=== PATIENT | female | born 1985 | race Caucasian/White ===

== ENCOUNTER 2018-08-12 19:31 | Observation (INO) | payer SELFPAY ==
[~2018-08-12] VITALS: Ht 175.3 cm; Wt 76.0 kg
[2018-08-12] MEDS ORDERED: SODIUM CHLORIDE FLUSH 10ML SYR IVF ONE (20:00)
[2018-08-12 20:06] LABS: BASOPHILS # (AUTO) 0.03 x10^3/uL (0-0.1); BASOPHILS % (AUTO) 0 % (0-1); EOSINOPHILS # (AUTO) 0.25 x10^3/uL (0-0.4); EOSINOPHILS % (AUTO) 3 % (1-7); LYMPHOCYTES # (AUTO) 3.21 x10^3/uL (1-3.4); LYMPHOCYTES % (AUTO) 43 % (22-44); MD NO; MEAN CORPUSCULAR HEMOGLOBIN 34.1 pg (27.0-34.8); MEAN CORPUSCULAR HGB CONC 34.4 g/dL (32.4-35.8); MEAN CORPUSCULAR VOLUME 99.1 fL (80-100); MEAN PLATELET VOLUME 8.4 fL (7.4-10.4); MONOCYTES # (AUTO) 0.59 x10^3/uL (0.2-0.8); MONOCYTES % (AUTO) 8 % (2-9); NEUTROPHILS # (AUTO) 3.44 x10^3/uL (1.8-6.8); NEUTROPHILS % (AUTO) 46 % (42-75); PLATELET COUNT 251 x10^3/uL (130-400); RED BLOOD COUNT 4.19 x10^6/uL (3.82-5.3); RED CELL DISTRIBUTION WIDTH 12.6 % (9.6-15.2)
[2018-08-12 20:11] LABS: ALBUMIN 3.7 g/dL (3.4-5.0); ANION GAP 5 mmol/L (5-15); CALCIUM 7.9 mg/dL (8.5-10.1); CHLORIDE 116 mmol/L (98-107); CREATININE 0.55 mg/dL (0.55-1.02)
[2018-08-12] MEDS ORDERED: MECLIZINE CHEWABLE 25 MG TAB PO ONE (21:00)
[2018-08-12] MEDS ORDERED: DIAZEPAM 5 MG/ML, 2ML IVPush ONE (21:00)
[2018-08-12] MEDS ORDERED: HYDROcodone/APAP 5/325 TABLET PO ONE (21:00)
[2018-08-12] MEDS ORDERED: HYDROcodone/APAP 5/325 TABLET ONE (21:01)
[2018-08-12] MEDS ORDERED: ONDANSETRON 2MG/ML, 2ML ONE (21:07)
[2018-08-12] MEDS ORDERED: ONDANSETRON 2MG/ML, 2ML IVPush ONE (21:30)
[2018-08-12] MEDS ORDERED: ASPIRIN 325 MG TABLET PO ONE (21:51)
[2018-08-12] MEDS ORDERED: ASPIRIN 325 MG TABLET ONE (22:12)
[2018-08-12] MEDS ORDERED: OMNIPAQUE 350 MG/ML, 100ML BOTTLE ONE (22:24)
[2018-08-12] MEDS: ENOXAPARIN 40 MG/0.4 ML SQ SCH (23:45)
[2018-08-13] MEDS: KETOROLAC 30 MG/1 ML IVPush PRN ×3 (00:39→12:39)
[2018-08-13 05:02] VITALS: BP 110/68
[2018-08-13 05:47] LABS: BASOPHILS # (AUTO) 0.03 x10^3/uL (0-0.1); BASOPHILS % (AUTO) 1 % (0-1); EOSINOPHILS # (AUTO) 0.28 x10^3/uL (0-0.4); EOSINOPHILS % (AUTO) 6 % (1-7); LYMPHOCYTES # (AUTO) 2.21 x10^3/uL (1-3.4); LYMPHOCYTES % (AUTO) 44 % (22-44); MD NO; MEAN CORPUSCULAR HEMOGLOBIN 33.4 pg (27.0-34.8); MEAN CORPUSCULAR HGB CONC 33.6 g/dL (32.4-35.8); MEAN CORPUSCULAR VOLUME 99.2 fL (80-100); MEAN PLATELET VOLUME 8.6 fL (7.4-10.4); MONOCYTES # (AUTO) 0.54 x10^3/uL (0.2-0.8); MONOCYTES % (AUTO) 11 % (2-9); NEUTROPHILS # (AUTO) 1.95 x10^3/uL (1.8-6.8); NEUTROPHILS % (AUTO) 39 % (42-75); PLATELET COUNT 223 x10^3/uL (130-400); RED BLOOD COUNT 4.06 x10^6/uL (3.82-5.3); RED CELL DISTRIBUTION WIDTH 12.4 % (9.6-15.2)
[2018-08-13 05:52] LABS: ANION GAP 7 mmol/L (5-15); CALCIUM 8.2 mg/dL (8.5-10.1); CHLORIDE 114 mmol/L (98-107)
[2018-08-13 07:47] VITALS: BP 111/70
[2018-08-13] MEDS ORDERED: GADOBUTROL 7.5 MMOL/7.5 ML PFS ONE (09:31)
[2018-08-13] MEDS ORDERED: PSEUDOEPHEDRINE 30 MG TABLET PO PRN (14:00)
[2018-08-13] MEDS ORDERED: SODIUM CHLORIDE NASAL SPRAY 45ML BOTTLE NAS PRN (14:00)
[2018-08-13 14:56] VITALS: BP 113/72
[2018-08-13] MEDS: LORATADINE 10 MG TABLET PO SCH (14:59)
[2018-08-13] MEDS ORDERED: NICOTINE 7 MG/24 HR PATCH.TD24 TD SCH (18:30)
[2018-08-13 21:13] VITALS: BP 103/68
[2018-08-13] MEDS: ENOXAPARIN 40 MG/0.4 ML SQ SCH (22:19)
[2018-08-14 05:17] VITALS: BP 106/72
[2018-08-14 07:50] VITALS: BP 109/68
[2018-08-14] MEDS: LORATADINE 10 MG TABLET PO SCH (09:41)
[2018-08-14] MEDS ORDERED: SODI44SP NAS (11:57)
[2018-08-14] MEDS ORDERED: LORA-247 PO (11:57)
[2018-08-14] MEDS ORDERED: PSEU30TA24 PO (11:57)
== END 2018-08-14 16:22 | disposition home or self-care (01) ==
LOC: ED 21:40 → INTOOBSV 21:45 → EDIP 21:45 → 5SO 23:17
PROVIDERS: ADMIT Family Medicine; ATTEND Family Medicine
DX: R55 Syncope and collapse (principal); E87.6 Hypokalemia; F17.200 Nicotine dependence, unspecified, uncomplicated; G95.9 Disease of spinal cord, unspecified; H93.11 Tinnitus, right ear; Z90.710 Acquired absence of both cervix and uterus; J30.9 Allergic rhinitis, unspecified
CPT/HCPCS: 36415; 70450; 70498; 70553; 72141; 80048; 82040; 82607; 85025; 90471; 90656; 93005; 96372; 96374; 96375; 96376; 99284; A9585; G0378; J1650; J1885; J2405; J3360; Q9967

== ENCOUNTER 2018-11-12 13:45 | Emergency (ER) | payer BC, OTHER ==
[~2018-11-12] VITALS: Ht 175.3 cm; Wt 79.0 kg
[~2018-11-12 13:45] MED LIST: LORA-247 PO; PSEU30TA24 PO; SODI44SP NAS
[2018-11-12] MEDS ORDERED: ACETAMINOPHEN 500 MG TABLET ONE (13:59)
[2018-11-12] MEDS ORDERED: ACETAMINOPHEN 500 MG TABLET PO ONE (14:00)
[2018-11-12] MEDS ORDERED: MORPHINE SULFATE 4 MG/ML, 1ML ONE ×2 (14:18→15:43)
[2018-11-12] MEDS ORDERED: ONDANSETRON 2MG/ML, 2ML ONE (14:18)
[2018-11-12] MEDS ORDERED: PLEASE ENTER WEIGHT MC SCH (14:30)
[2018-11-12] MEDS ORDERED: morphine SULFATE 10 MG/ML, 1ML IVPush ONE (14:30)
[2018-11-12] MEDS ORDERED: ONDANSETRON 2MG/ML, 2ML IVPush ONE (14:30)
[2018-11-12] MEDS ORDERED: SODIUM CHLORIDE 0.9% 1,000ML IVBOLUS ONE (14:30)
[2018-11-12 14:38] LABS: BASOPHILS # (AUTO) 0.01 x10^3/uL (0-0.1); BASOPHILS % (AUTO) 0 % (0-1); EOSINOPHILS # (AUTO) 0.02 x10^3/uL (0-0.4); EOSINOPHILS % (AUTO) 0 % (1-7); LYMPHOCYTES # (AUTO) 0.89 x10^3/uL (1-3.4); LYMPHOCYTES % (AUTO) 10 % (22-44); MD NO; MEAN CORPUSCULAR HEMOGLOBIN 33.5 pg (27.0-34.8); MEAN CORPUSCULAR HGB CONC 33.6 g/dL (32.4-35.8); MEAN CORPUSCULAR VOLUME 99.8 fL (80-100); MEAN PLATELET VOLUME 8.2 fL (7.4-10.4); MONOCYTES # (AUTO) 1.08 x10^3/uL (0.2-0.8); MONOCYTES % (AUTO) 12 % (2-9); NEUTROPHILS # (AUTO) 7.13 x10^3/uL (1.8-6.8); NEUTROPHILS % (AUTO) 78 % (42-75); PLATELET COUNT 180 x10^3/uL (130-400); RED BLOOD COUNT 4.31 x10^6/uL (3.82-5.3); RED CELL DISTRIBUTION WIDTH 12.4 % (9.6-15.2)
[2018-11-12 14:40] LABS: MICROSCOPIC NOT IND
--- NOTE | 2018-11-12 14:40 | NUR ---
Late note: pt reports leg pains/aches, bilateral arm pit pain after seen yesterday and given abx. Denies any new abd pain. Pt arrives with fever 103, tylenol given in triage. Fluids infusing, per PA hold on abx until labs resulted. Pt medicated per emar, reports tolerable level of pain after meds. On cont cardiac and pulse ox monitoring.
[2018-11-12 14:42] LABS: ALANINE AMINOTRANSFERASE 19 U/L (12-78); ALBUMIN 3.8 g/dL (3.4-5.0); ANION GAP 7 mmol/L (5-15); CALCIUM 8.6 mg/dL (8.5-10.1); CHLORIDE 107 mmol/L (98-107); CREATININE 0.74 mg/dL (0.55-1.02)
[2018-11-12 14:44] LABS: ALKALINE PHOSPHATASE 60 U/L (45-117); BILIRUBIN,TOTAL 0.7 mg/dL (0.2-1.0); TOTAL PROTEIN 7.2 g/dL (6.4-8.2)
[2018-11-12 14:45] LABS: CULTURE INDICATED? NO
--- NOTE | 2018-11-12 15:29 | NUR ---
REPORT FROM BETO PAIGE.
--- NOTE | 2018-11-12 15:31 | NUR ---
FIRST CONTACT WITH PT. PT SITTING UP IN GURNEY, AWAKE/ALERT. PT APPEARS UNCOMFORTABLE, REPORTING "REALLY BAD" KNEE PAIN. "IT FEELS LIKE I FELL ON THEM". NO OPEN WOUNDS NOTED/NO SWELLING/REDNESS. +TENDER TO PALPATION. PT REQUESTING ADDITIONAL PAIN MEDICATIONS. ERP AWARE. AWAITING ORDERS.
[2018-11-12] MEDS ORDERED: KETOROLAC 30 MG/1 ML ONE (15:42)
[2018-11-12] MEDS ORDERED: DEXAMETHASONE 4 MG/ML, 1ML ONE (15:42)
--- NOTE | 2018-11-12 15:57 | NUR ---
PT MEDICATED PER EMAR FOR CONTINUED PAIN. POC IS DC WHEN ABLE
[2018-11-12] MEDS ORDERED: MORPHINE SULFATE 4 MG/ML, 1ML IVPush ONE (16:00)
[2018-11-12] MEDS ORDERED: DEXAMETHASONE 4 MG/ML, 1ML IVPush ONE (16:00)
[2018-11-12] MEDS ORDERED: KETOROLAC 30 MG/1 ML IVPush ONE (16:00)
--- NOTE | 2018-11-12 16:27 | NUR ---
DESPITE MILD HYPOTENSION, PT AMBULATORY W/O CO DIZZINESS/WEAKNESS/NAUSEA. PT AMBULATORY WO ASSISTANCE. SPO2 >90% ON RA. RR WNL PT REPORTS SIGNIFICANT IMPROVEMENT IN PAIN, 3/10 "WAY MORE COMFORTABLE". IV DC'D. PT OFF MONITORING AND UP TO DRESS SELF. SO AT BEDSIDE FOR ASSISTANCE.
[2018-11-12 16:28] VITALS: BP 95/50
--- NOTE | 2018-11-12 16:39 | NUR ---
TASK RN: Patient/Caregiver given discharge instructions and they have confirmed that they understand the instructions. Patient ambulatory with steady gait.
== END 2018-11-12 16:40 | disposition home or self-care (01) ==
LOC: ED 15:30
DX: M79.10 Myalgia, unspecified site (principal); R50.9 Fever, unspecified; Z77.22 Contact with and (suspected) exposure to environmental tobacco smoke (acute) (chronic)
CPT/HCPCS: 36415; 80053; 81003; 83605; 84145; 85025; 87040; 93005; 96374; 96375; 96376; 99284; J1100; J1885; J2270; J2405; J7030

== ENCOUNTER 2018-11-30 10:45 | Emergency (ER) | payer BC ==
[~2018-11-30] VITALS: Ht 175.3 cm; Wt 74.1 kg
[2018-11-30] MEDS ORDERED: HYDROmorphone 2 MG/ML, 1ML ONE (11:26)
[2018-11-30] MEDS ORDERED: KETOROLAC 60 MG/2 ML ONE (11:26)
[2018-11-30] MEDS ORDERED: KETOROLAC 30 MG/1 ML IM ONE (11:30)
[2018-11-30] MEDS ORDERED: HYDROmorphone 1 MG/ML, 1ML INJ IM ONE (11:30)
[2018-11-30 11:33] LABS: BASOPHILS # (AUTO) 0.04 x10^3/uL (0-0.1); BASOPHILS % (AUTO) 1 % (0-1); EOSINOPHILS # (AUTO) 0.21 x10^3/uL (0-0.4); EOSINOPHILS % (AUTO) 4 % (1-7); LYMPHOCYTES # (AUTO) 1.41 x10^3/uL (1-3.4); LYMPHOCYTES % (AUTO) 26 % (22-44); MD NO; MEAN CORPUSCULAR HEMOGLOBIN 34.1 pg (27.0-34.8); MEAN CORPUSCULAR HGB CONC 33.6 g/dL (32.4-35.8); MEAN CORPUSCULAR VOLUME 101.3 fL (80-100); MEAN PLATELET VOLUME 8.1 fL (7.4-10.4); MONOCYTES # (AUTO) 0.63 x10^3/uL (0.2-0.8); MONOCYTES % (AUTO) 12 % (2-9); NEUTROPHILS # (AUTO) 3.15 x10^3/uL (1.8-6.8); NEUTROPHILS % (AUTO) 58 % (42-75); PLATELET COUNT 277 x10^3/uL (130-400); RED BLOOD COUNT 4.48 x10^6/uL (3.82-5.3); RED CELL DISTRIBUTION WIDTH 12.7 % (9.6-15.2)
[2018-11-30 11:46] LABS: ALANINE AMINOTRANSFERASE 29 U/L (12-78); ANION GAP 6 mmol/L (5-15); CALCIUM 9.1 mg/dL (8.5-10.1); CHLORIDE 107 mmol/L (98-107); CREATININE 0.86 mg/dL (0.55-1.02)
[2018-11-30 11:49] LABS: ALKALINE PHOSPHATASE 63 U/L (45-117); BILIRUBIN,TOTAL 0.4 mg/dL (0.2-1.0); TOTAL PROTEIN 7.6 g/dL (6.4-8.2)
[2018-11-30 12:52] VITALS: BP 117/66
== END 2018-11-30 13:51 | disposition home or self-care (01) ==
LOC: ED 12:01
DX: L04.2 Acute lymphadenitis of upper limb (principal); F17.200 Nicotine dependence, unspecified, uncomplicated
CPT/HCPCS: 36415; 71046; 80053; 85025; 93005; 93971; 96372; 99284; J1170; J1885

== ENCOUNTER 2018-12-10 17:02 | Emergency (ER) | payer BC ==
[~2018-12-10] VITALS: Ht 175.3 cm; Wt 77.0 kg
[2018-12-10] MEDS ORDERED: IBUPROFEN 600 MG TABLET ONE (18:29)
[2018-12-10] MEDS ORDERED: ACETAMINOPHEN 500 MG TABLET ONE (18:29)
[2018-12-10] MEDS ORDERED: IBUPROFEN 600 MG TABLET PO ONE (18:30)
[2018-12-10] MEDS ORDERED: ACETAMINOPHEN 500 MG TABLET PO ONE (18:30)
--- NOTE | 2018-12-10 18:35 | NUR ---
PT MEDICATED PER MAR, PT REMAINS TEARFUL, STATING PAIN 10/10, AT BEDSIDE, WILL REASSESS AND NOTIFY MD.
[2018-12-10 18:37] LABS: BASOPHILS # (AUTO) 0.04 x10^3/uL (0-0.1); BASOPHILS % (AUTO) 1 % (0-1); EOSINOPHILS # (AUTO) 0.15 x10^3/uL (0-0.4); EOSINOPHILS % (AUTO) 3 % (1-7); LYMPHOCYTES % (AUTO) 37 % (22-44); MD NO; MEAN CORPUSCULAR HEMOGLOBIN 33.9 pg (27.0-34.8); MEAN CORPUSCULAR HGB CONC 33.8 g/dL (32.4-35.8); MEAN CORPUSCULAR VOLUME 100.5 fL (80-100); MEAN PLATELET VOLUME 8.3 fL (7.4-10.4); MONOCYTES # (AUTO) 0.53 x10^3/uL (0.2-0.8); MONOCYTES % (AUTO) 10 % (2-9); NEUTROPHILS # (AUTO) 2.67 x10^3/uL (1.8-6.8); NEUTROPHILS % (AUTO) 50 % (42-75); PLATELET COUNT 279 x10^3/uL (130-400); RED BLOOD COUNT 4.19 x10^6/uL (3.82-5.3); RED CELL DISTRIBUTION WIDTH 12.8 % (9.6-15.2)
[2018-12-10 18:43] LABS: ALBUMIN 3.7 g/dL (3.4-5.0); ANION GAP 8 mmol/L (5-15); CALCIUM 8.2 mg/dL (8.5-10.1); CHLORIDE 114 mmol/L (98-107); CREATININE 0.58 mg/dL (0.55-1.02)
[2018-12-10 18:45] LABS: CREATINE KINASE, TOTAL 47 U/L (26-192)
--- NOTE | 2018-12-10 19:08 | NUR ---
RECEIVED BS REPORT FROM BETO OSORIO AND BETO GOTTI TO ASSUME CARE OF PT. IMMEDIATELY UPON ENTERING ROOM PT. FAMILY MEMBER BECAME VERY VERBALLY AGRESSIVE WITH THESE 3 RN'S SHOUTING ABOUT HOW HE DID NOT APPRECIATE THE DR. BEDSIDE MANNER. PT. 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
--- NOTE | 2018-12-10 19:10 | NUR ---
REPORT GIVEN TO BOBBY PÉREZ. ANGRY WITH ERMD, CUSSING AND SWEARING TO NOC/DAY SHIFT STAFF DURING SHIFT CHANGE, HE STATES " THE ASSHOLE COULDNT GIVE TWO SECONDS TO APPOLOGIZE FOR HIS BEHAVIOR TO MY "
--- NOTE | 2018-12-10 19:11 | NUR ---
DR. BOWLING AT BS NOW. PT. FAMILY WAS ALSO STATING "I AM NOT NAIVE TO WHAT GOES ON, THAT ISN'T BUSY, EVERYONE IS JUST SITTING ON THEIR ASS."
[2018-12-10] MEDS ORDERED: OXYcodone IR 5MG TABLET PO ONE (19:30)
--- NOTE | 2018-12-10 19:37 | NUR ---
PT. MEDICATED PER RODGER ROA AT BS.
--- NOTE | 2018-12-10 20:22 | NUR ---
CHART UP FOR RECHECK BY JEFE.
--- NOTE | 2018-12-10 20:36 | NUR ---
PT. RESTING ON GURNEY MOSTLY SLEEPING. NO DISTRESS NOTED. RESPIRATIONS EVEN, NON-LABORED. FAMILY APOLOGETIC TO THIS RN AT THIS TIME.
--- NOTE | 2018-12-10 20:40 | NUR ---
DR. BOWLING IN TO DISCUSS FINDINGS AND POC WITH PT. AND FAMILY.
[2018-12-10 20:56] VITALS: BP 90/49
== END 2018-12-10 21:07 | disposition home or self-care (01) ==
LOC: ED 20:27
DX: M79.661 Pain in right lower leg (principal); M79.662 Pain in left lower leg; M79.10 Myalgia, unspecified site; R53.83 Other fatigue; Z90.710 Acquired absence of both cervix and uterus
CPT/HCPCS: 36415; 80048; 82040; 82550; 83735; 85025; 93970; 99284

== ENCOUNTER 2019-07-15 21:16 | Emergency (ER) | payer BC ==
[~2019-07-15] VITALS: Ht 175.3 cm; Wt 87.0 kg
--- NOTE | 2019-07-15 22:03 | NUR ---
ASSESSMENT MADE. PA AT BEDSIDE.
[2019-07-15] MEDS ORDERED: SODIUM CHLORIDE 0.9% 1,000ML IVBOLUS ONE (22:30)
[2019-07-15] MEDS ORDERED: KETOROLAC 30 MG/1 ML IVPush ONE (22:30)
[2019-07-15] MEDS ORDERED: DIPHENHYDRAMINE 50 MG/ML, 1ML IVPush ONE (22:30)
[2019-07-15] MEDS ORDERED: METOCLOPRAMIDE 5 MG/ML, 2ML IVPush ONE (22:30)
[2019-07-15] MEDS ORDERED: SODIUM CHLORIDE FLUSH 10ML SYR IVF ONE (22:30)
[2019-07-15] MEDS ORDERED: METOCLOPRAMIDE 5 MG/ML, 2ML ONE (22:35)
[2019-07-15] MEDS ORDERED: DIPHENHYDRAMINE 50 MG/ML, 1ML ONE (22:35)
[2019-07-15] MEDS ORDERED: KETOROLAC 30 MG/1 ML ONE (22:35)
--- NOTE | 2019-07-15 22:50 | NUR ---
EKG and X ray done. IVF hung.
--- NOTE | 2019-07-15 23:00 | NUR ---
patient medicated. c/o chest wall pain due to chest compression. PA aware.
[2019-07-15 23:04] LABS: BASOPHILS # (AUTO) 0.03 x10^3/uL (0-0.1); BASOPHILS % (AUTO) 0 % (0-1); EOSINOPHILS # (AUTO) 0.54 x10^3/uL (0-0.4); EOSINOPHILS % (AUTO) 7 % (1-7); LYMPHOCYTES # (AUTO) 2.92 x10^3/uL (1-3.4); LYMPHOCYTES % (AUTO) 39 % (22-44); MD NO; MEAN CORPUSCULAR HEMOGLOBIN 33.3 pg (27.0-34.8); MEAN CORPUSCULAR HGB CONC 33.7 g/dL (32.4-35.8); MEAN CORPUSCULAR VOLUME 98.9 fL (80-100); MEAN PLATELET VOLUME 8.6 fL (7.4-10.4); MONOCYTES % (AUTO) 8 % (2-9); NEUTROPHILS # (AUTO) 3.37 x10^3/uL (1.8-6.8); NEUTROPHILS % (AUTO) 45 % (42-75); PLATELET COUNT 270 x10^3/uL (130-400); RED BLOOD COUNT 4.45 x10^6/uL (3.82-5.3); RED CELL DISTRIBUTION WIDTH 13.5 % (9.6-15.2)
[2019-07-15 23:14] LABS: ALANINE AMINOTRANSFERASE 52 U/L (12-78); ALBUMIN 3.8 g/dL (3.4-5.0); ANION GAP 6 mmol/L (5-15); CALCIUM 9.3 mg/dL (8.5-10.1); CHLORIDE 114 mmol/L (98-107); CREATININE 0.64 mg/dL (0.55-1.02)
[2019-07-15 23:18] LABS: ALKALINE PHOSPHATASE 57 U/L (45-117); BILIRUBIN,TOTAL 0.2 mg/dL (0.2-1.0); TOTAL PROTEIN 7.4 g/dL (6.4-8.2)
--- NOTE | 2019-07-15 23:30 | NUR ---
patient sleeping, no complaints.
--- NOTE | 2019-07-15 23:50 | NUR ---
attempted to ambulate, unable still dizzy.
--- NOTE | 2019-07-16 00:30 | NUR ---
attempted to ambulate states still dizzy and feeling weak.
[2019-07-16] MEDS ORDERED: SODIUM CHLORIDE 0.9% 1,000ML IVBOLUS ONE ×2 (01:00→03:00)
--- NOTE | 2019-07-16 01:00 | NUR ---
ERP at bedside for re-evaluation. 2nd liter IVF hung
--- NOTE | 2019-07-16 02:00 | NUR ---
IVF infused. patient's BP low. MD aware. orthostatic BP ordered.
--- NOTE | 2019-07-16 02:21 | NUR ---
RN received report from BETO Waggoner. Updated on patients current complaint and interventions performed. Also reviewed plan of care. Assumed patient care.
--- NOTE | 2019-07-16 02:30 | NUR ---
Positive Orthostatic BP. aware.
[2019-07-16] MEDS ORDERED: SODIUM CHLORIDE 0.9% 1,000 ML IV SCH (04:11)
[2019-07-16] MEDS ORDERED: ONDANSETRON ODT 4 MG PO PRN (04:30)
[2019-07-16] MEDS ORDERED: PROMETHAZINE 25 MG/ML, 1ML IM PRN (04:30)
[2019-07-16] MEDS ORDERED: BISACODYL 10 MG SUPP PR PRN (04:30)
[2019-07-16] MEDS ORDERED: hydrALAzine 20 MG/ML, 1ML IVPush PRN (04:30)
[2019-07-16] MEDS ORDERED: NICOTINE 7 MG/24 HR PATCH.TD24 TD SCH (04:30)
[2019-07-16] MEDS ORDERED: ONDANSETRON 2MG/ML, 2ML IVPush PRN (04:30)
[2019-07-16] MEDS ORDERED: DOCUSATE 100 MG CAPSULE PO PRN (04:30)
[2019-07-16] MEDS ORDERED: POLYETHYLENE GLYCOL 17 GM PACKET PO PRN (04:30)
[2019-07-16] MEDS ORDERED: ACETAMINOPHEN 325 MG TABLET PO PRN (04:30)
[2019-07-16] MEDS ORDERED: HEPARIN 5,000 UNITS/ML, 1ML SQ SCH (04:30)
[2019-07-16 04:54] LABS: FREE T4 (FREE THYROXINE) 0.76 ng/dL (0.76-1.46)
[2019-07-16] MEDS ORDERED: ONDANSETRON ODT 4 MG ONE (04:59)
[2019-07-16] MEDS ORDERED: NICOTINE 7 MG/24 HR PATCH.TD24 ONE (04:59)
--- NOTE | 2019-07-16 05:41 | NUR ---
RN to bedside after assessment by hospital provider. RN noted medications were ordered immediately. Spoke with pharmacy to reschedule medications to normal twice daily times at 0900. Patient requested having a bathroom visit. RN returned assisted patient to commode due to history of loss of consciousness with standing. RN then returned, administered analgesic and antiemetic medications after patient had an episode of emesis. Patient agreeable. RN then returned after bed meeting as patient remains a telemetry hold. RN then returned to bedside, patient transferred into hospital bed. Patient then provided with warm blankets. Awaiting hospital bed.
--- NOTE | 2019-07-16 07:03 | NUR ---
REC BS REPORT PT RESTING NADN
--- NOTE | 2019-07-16 07:34 | NUR ---
O2 2 LPM NC STARTED DESAT TO 88 WHILE ASLEEP
[2019-07-16] MEDS ORDERED: AMOXICILLIN/CLAV 875-125MG TABLET ONE ×2 (08:52→11:46)
[2019-07-16] MEDS ORDERED: HEPARIN 5,000 UNITS/ML, 1ML ONE (08:52)
[2019-07-16] MEDS ORDERED: AMOXICILLIN/CLAV 875-125MG TABLET PO SCH ×2 (09:00→11:00)
[2019-07-16] MEDS ORDERED: GABA300C10 PO (09:32)
[2019-07-16] MEDS ORDERED: PRAZ2CAP2 PO (09:32)
[2019-07-16] MEDS ORDERED: QUET200T4 PO (09:32)
[2019-07-16] MEDS ORDERED: BUSP5TAB2 PO (09:32)
[2019-07-16] MEDS ORDERED: FLUO20CA19 PO (09:32)
--- NOTE | 2019-07-16 09:54 | NUR ---
Sathya garcia in ED - 07/16/19 at 1001 by DERRICK MED RECC UPDATED-SPOKE TO DR. MCLEOD-ADJUSTED HOME MEDS VSS ON SUPERVISOR POST WAVE UA COLLECTED
--- NOTE | 2019-07-16 09:59 | NUR ---
PRIOR NOTE NOT WRITTEN BY BELINDA PÉREZ RATHER WRITTEN BY KULWINDER PÉREZ MED RECC UPDATED-SPOKE TO DR. MCLEOD-ADJUSTED HOME MEDS VSS ON CUTTER BANANA ROOM UA COLLECTED
[2019-07-16] MEDS ORDERED: MAGNESIUM SULFATE PMX 2GM/50ML 50 ML IV ONE (10:00)
[2019-07-16 10:06] LABS: MICROSCOPIC NOT IND
[2019-07-16 10:09] LABS: CULTURE INDICATED? NO
--- NOTE | 2019-07-16 10:34 | NUR ---
CLARIFIED ESTIMATED TIME WITH FURTHER ASSESSMENT PATIENT REPORT'S "WHEN I HAD MY EAR INFECTION LAST YEAR I WAS PASSING OUT JUST LIKE THIS. I THINK IT IS RELATED."
--- NOTE | 2019-07-16 10:45 | NUR ---
Break RN: MD Bo paged to request scheduled home meds be ordered now that med req complete, and to equest re-assessment for discharge per pt request. MD Vizcarra states that he wants the pt's ECHO completed he will assess pt for discharge. Report to primary RN Jayce
--- NOTE | 2019-07-16 11:05 | NUR ---
echo at bedside
[2019-07-16] MEDS ORDERED: BUSPIRONE 10 MG TABLET PO SCH (11:30)
[2019-07-16] MEDS ORDERED: GABAPENTIN 300 MG CAPSULE PO SCH ×2 (11:30→12:00)
[2019-07-16] MEDS ORDERED: FLUOXETINE 10 MG CAP PO SCH (11:30)
[2019-07-16] MEDS ORDERED: GABAPENTIN 300 MG CAPSULE ONE (11:47)
[2019-07-16] MEDS ORDERED: FLUOXETINE 10 MG CAP ONE (11:47)
[2019-07-16] MEDS ORDERED: FLUOXETINE HCL 20 MG CAPSULE ONE (11:47)
[2019-07-16] MEDS ORDERED: CLINDAMYCIN 300 MG CAPSULE ONE (11:59)
[2019-07-16] MEDS ORDERED: CLINDAMYCIN 300 MG CAPSULE PO SCH (12:00)
[2019-07-16] MEDS ORDERED: FLUOXETINE HCL 20 MG CAPSULE PO SCH (12:00)
[2019-07-16] MEDS ORDERED: BUSPIRONE 5 MG TABLET PO SCH (12:00)
--- NOTE | 2019-07-16 13:40 | NUR ---
US RESULTS REVIEWED- DR. DELGADO PAGED
--- NOTE | 2019-07-16 13:51 | NUR ---
NO MD CALL BACK THUS FAR. DR. DELGADO PAGED AGAIN AT [phone]
--- NOTE | 2019-07-16 13:53 | NUR ---
SPOKE TO DR. DELGADO. HE IS TO REVIEW RESULTS AND WILL EVALUATE DISPO/COME SEE PATIENT WITHIN THE HOUR (BY 3:00PM)
[2019-07-16] MEDS ORDERED: ACET325T26 PO (14:25)
[2019-07-16] MEDS ORDERED: CLIN300C8 PO (14:25)
--- NOTE | 2019-07-16 15:10 | NUR ---
REPORT TO CHAPARRO PÉREZ
--- NOTE | 2019-07-16 15:28 | NUR ---
Report received from Jayce. pt resting and in no distress.
--- NOTE | 2019-07-16 15:31 | NUR ---
[facility]. [facility]charge [facility] to start discharge paperwork.
[2019-07-16 15:35] VITALS: BP 112/67
--- NOTE | 2019-07-16 15:35 | NUR ---
pt refused flu vaccine. states will get at [employer], where she works.
[2019-07-16] MEDS ORDERED: QUETIAPINE 200 MG TABLET PO SCH (21:00)
[2019-07-16] MEDS ORDERED: PRAZOSIN 2 MG CAPSULE PO SCH (21:00)
== END 2019-07-16 16:52 | disposition other institution (70) ==
LOC: ED 07-16 02:44 → INTOOBSV 07-16 03:00 → UNDOADMOB 07-16 03:00 → EDIP 07-16 03:00 → ED 07-16 16:52
DX: R55 Syncope and collapse (principal); R07.89 Other chest pain; I95.9 Hypotension, unspecified
CPT/HCPCS: 36415; 71045; 80053; 81003; 83036; 83735; 84439; 84443; 84703; 85025; 93005; 93306; 96361; 96374; 96375; 99285; J1200; J1885; J2765; J7030; Q0162

== ENCOUNTER 2020-02-14 16:03 | Emergency (ER) | payer BC, OTHER ==
[~2020-02-14] VITALS: Ht 175.3 cm; Wt 93.2 kg
[~2020-02-14 16:03] MED LIST changes: +ACET325T26 PO; +BUSP5TAB2 PO; +CLIN300C8 PO; +FLUO20CA19 PO; +GABA300C10 PO; +PRAZ2CAP2 PO; +QUET200T4 PO
--- NOTE | 2020-02-14 16:33 | NUR ---
PT TO ROOM FROM LOBBY
--- NOTE | 2020-02-14 16:34 | NUR ---
34 YR OLD FEMALE HERE WITH C/O "I KICKED THE CORNER OF MY BED. MY TOE ISNT RIGHT" LEFT LITTLE TOE ANGLED TO SIDE. PT HERE WITH NEIGHBOR DAMEON.
[2020-02-14] MEDS ORDERED: LIDOCAINE-MPF 1%, 5ML INFIL ONE (17:00)
[2020-02-14] MEDS ORDERED: LIDOCAINE-MPF 1%, 5ML ONE (17:41)
[2020-02-14] MEDS ORDERED: ACETAMINOPHEN 325 MG TABLET ONE (17:42)
--- NOTE | 2020-02-14 17:47 | NUR ---
SHANNON SANTIAGO AT BEDSIDE TO EVAL PT. PT MEDICATED ORDERED. LIDOCAINE ADMINISTERED BY SHANNON. PT AND PTS FRIEND AWARE OF POC.
[2020-02-14] MEDS ORDERED: ACETAMINOPHEN 325 MG TABLET PO ONE (18:00)
[2020-02-14] MEDS ORDERED: HYDROmorphone 1 MG/ML, 1ML INJ IM ONE (18:30)
[2020-02-14] MEDS ORDERED: HYDROmorphone 1 MG/ML, 1ML INJ ONE (18:34)
--- NOTE | 2020-02-14 18:42 | NUR ---
PT MEDICATED FOR 11/12 PAIN ORDERED.
[2020-02-14 18:43] VITALS: BP 121/64
--- NOTE | 2020-02-14 18:50 | NUR ---
REPORT TO JOEY PÉREZ
== END 2020-02-14 19:13 | disposition home or self-care (01) ==
LOC: ED 17:59
DX: S93.114A Dislocation of interphalangeal joint of right lesser toe(s), initial encounter (principal); F17.200 Nicotine dependence, unspecified, uncomplicated; I95.9 Hypotension, unspecified; E87.6 Hypokalemia; X58.XXXA Exposure to other specified factors, initial encounter; Y93.89 Activity, other specified; Y92.098 Other place in other non-institutional residence as the place of occurrence of the external cause; Y99.8 Other external cause status
CPT/HCPCS: 28515; 73630; 96372; 99284; J1170; 28660

== ENCOUNTER 2020-10-11 14:57 | Emergency (ER) | payer BC ==
[~2020-10-11] VITALS: Ht 175.3 cm; Wt 94.0 kg
[~2020-10-11 14:57] MED LIST changes: -CLIN300C8 PO; +CLIN300C9 PO; +PSEU30TA PO; -PSEU30TA24 PO
[2020-10-11 15:00] VITALS: BP 169/88
--- NOTE | 2020-10-11 15:40 | NUR ---
plane runner: pt from lobby to room 6
--- NOTE | 2020-10-11 16:14 | NUR ---
RAD IN ROOM.
--- NOTE | 2020-10-11 16:55 | NUR ---
Patient given discharge instructions and they have confirmed that they understand the instructions. Patient ambulatory with steady gait.
== END 2020-10-11 16:57 | disposition home or self-care (01) ==
LOC: ED 16:51
DX: S60.222A Contusion of left hand, initial encounter (principal); I10 Essential (primary) hypertension; X58.XXXA Exposure to other specified factors, initial encounter; Y93.89 Activity, other specified; Y92.89 Other specified places as the place of occurrence of the external cause; Y99.8 Other external cause status
CPT/HCPCS: 99283

== ENCOUNTER 2020-11-08 11:55 | Emergency (ER) | payer BC ==
[~2020-11-08] VITALS: Ht 175.3 cm; Wt 91.0 kg
--- NOTE | 2020-11-08 12:50 | NUR ---
PT STATES THAT HAS HAD GI PROBLEMS SINCE A YOUNG GIRL THAT SHE WAS BULIMIC. STATES THAT FOR THE LAST WEEK HAS HAD LL FLANK ABD PAIN AND LAST NIGHT AROUND 1100. PAIN IS 8/10 AND DOESN'T RADIATE.
--- NOTE | 2020-11-08 13:18 | NUR ---
PROVIDER AT BEDSIDE TO EVALUATE PT.
[2020-11-08] MEDS ORDERED: SODIUM CHLORIDE 0.9% 1,000ML IV ONE (13:30)
[2020-11-08] MEDS ORDERED: KETOROLAC 30 MG/1 ML IVPush ONE (13:30)
[2020-11-08] MEDS ORDERED: ONDANSETRON 2MG/ML, 2ML IVPush ONE (13:30)
[2020-11-08] MEDS ORDERED: SODIUM CHLORIDE FLUSH 10ML SYR IVF ONE (13:30)
--- NOTE | 2020-11-08 13:30 | NUR ---
PT TO RADIOLOGY FOR CT.
--- NOTE | 2020-11-08 13:43 | NUR ---
PT BACK FROM CT AND HOOKED UP TO VITAL MONITOR DEVICES.
[2020-11-08] MEDS ORDERED: KETOROLAC 30 MG/1 ML ONE (14:05)
[2020-11-08] MEDS ORDERED: ONDANSETRON 2MG/ML, 2ML ONE (14:06)
[2020-11-08] MEDS ORDERED: MORPHINE SULFATE 4 MG/ML, 1ML ONE ×2 (14:07→15:46)
[2020-11-08 14:08] LABS: BASOPHILS % (AUTO) 1 % (0-1); EOSINOPHILS % (AUTO) 0 % (1-7); LYMPHOCYTES % (AUTO) 17 % (22-44); MD NO; MEAN CORPUSCULAR HEMOGLOBIN 33.3 pg (27.0-34.8); MEAN CORPUSCULAR HGB CONC 34.4 g/dL (32.4-35.8); MEAN PLATELET VOLUME 8.1 fL (7.4-10.4); MONOCYTES % (AUTO) 7 % (2-9); NEUTROPHILS % (AUTO) 75 % (42-75); PLATELET COUNT 321 x10^3/uL (130-400); RED BLOOD COUNT 4.69 x10^6/uL (3.82-5.3); RED CELL DISTRIBUTION WIDTH 13.7 % (9.6-15.2)
[2020-11-08] MEDS: MORPHINE SULFATE 4 MG/ML, 1ML IVPush PRN ×2 (14:11→15:50)
--- NOTE | 2020-11-08 14:18 | NUR ---
PT IV STARTED AND MEDICATED NADN VSS URINE AND BLOOD SPECIMEN SENT TO LAB. ROSINA GONZALEZ UP X2. CALL REMOTE WITHIN REACH.
[2020-11-08 14:19] LABS: ALBUMIN 4.6 g/dL (3.4-5.0); ANION GAP 16 mmol/L (5-15); CALCIUM 9.5 mg/dL (8.5-10.1); CHLORIDE 106 mmol/L (98-107); CREATININE 1.02 mg/dL (0.55-1.02)
[2020-11-08] MEDS ORDERED: SODIUM CHLORIDE 0.9% 1,000 ML IV ONE (14:26)
[2020-11-08] MEDS ORDERED: POTASSIUM CHLORIDE 20 MEQ TAB.ER.PRT PO ONE (14:30)
--- NOTE | 2020-11-08 14:40 | NUR ---
PT STATES FEEL MUCH BETTER AFTER BEING MEDICATED, NO NAUSEA OR VOMMITING.
[2020-11-08 14:41] LABS: MICROSCOPIC AUTO
[2020-11-08] MEDS ORDERED: POTASSIUM CHLORIDE 20 MEQ TAB.ER.PRT ONE (14:45)
--- NOTE | 2020-11-08 15:50 | NUR ---
PT STATES FEEL MUCH BETTER 2/10 PAIN AFTER BEING MEDICATED.
[2020-11-08 16:24] VITALS: BP 135/78
--- NOTE | 2020-11-08 16:26 | NUR ---
Patient given discharge instructions and they have confirmed that they understand the instructions. Patient ambulatory with steady gait. No questions at time of discharge.
== END 2020-11-08 16:29 | disposition home or self-care (01) ==
LOC: ED 12:34
DX: R10.32 Left lower quadrant pain (principal); R11.2 Nausea with vomiting, unspecified
CPT/HCPCS: 36415; 74176; 80048; 81001; 82040; 85025; 87086; 96361; 96374; 96375; 96376; 99285; J1885; J2270; J2405; J7030

== ENCOUNTER 2020-11-13 17:24 | Emergency (ER) | payer BC ==
[~2020-11-13] VITALS: Ht 175.3 cm; Wt 92.8 kg
[2020-11-13 18:16] LABS: BASOPHILS % (AUTO) 1 % (0-1); EOSINOPHILS % (AUTO) 1 % (1-7); LYMPHOCYTES % (AUTO) 24 % (22-44); MEAN CORPUSCULAR HEMOGLOBIN 33.9 pg (27.0-34.8); MEAN CORPUSCULAR HGB CONC 34.6 g/dL (32.4-35.8); MEAN PLATELET VOLUME 8.4 fL (7.4-10.4); MONOCYTES % (AUTO) 10 % (2-9); NEUTROPHILS % (AUTO) 65 % (42-75); PLATELET COUNT 297 x10^3/uL (130-400); RED BLOOD COUNT 4.34 x10^6/uL (3.82-5.3); RED CELL DISTRIBUTION WIDTH 13.5 % (9.6-15.2)
[2020-11-13 18:28] LABS: ALANINE AMINOTRANSFERASE 46 U/L (12-78); ANION GAP 8 mmol/L (5-15); CHLORIDE 109 mmol/L (98-107); CREATININE 0.85 mg/dL (0.55-1.02)
[2020-11-13 18:31] LABS: ALKALINE PHOSPHATASE 50 U/L (45-117); BILIRUBIN,TOTAL 0.4 mg/dL (0.2-1.0); TOTAL PROTEIN 7.5 g/dL (6.4-8.2)
--- NOTE | 2020-11-13 19:40 | NUR ---
pt was seen here last monday for a possible kidney stone according to pt. since then pain has radiated from left side to full low back on either side. reports her "spine feels like its being crushed" and reports she has increased pain with bowel movements and cramping on urination. pt reports excessvie diaphoresis and slight fevers at a max of 100.3. Patient is resting comfortably in bed. Bed in lowest, rails engaged, call light on lap. provided warm blankets for comfort. SO at bs. WCTM.
[2020-11-13 19:53] LABS: HCG UR SG 1.012 (1.003-1.030); MICROSCOPIC NOT IND
[2020-11-13] MEDS ORDERED: HYDROcodone/APAP 5/325 TABLET PO ONE (20:00)
[2020-11-13] MEDS ORDERED: HYDROcodone/APAP 5/325 TABLET ONE (20:06)
--- NOTE | 2020-11-13 20:11 | NUR ---
PT. REMAINS A & O X 4 WITH A GCS OF 15. PT. HAS THE PULSE OX AND BP CUFF IN PLACE. PT. WAS MEDICATED FOR PAIN ORDERED. PT. IS RESTING WITHOUT CONCERNS. PT. HAS THE SIDERAILS UP X 2 AND THE CALL LIGTH IN PLACE.
--- NOTE | 2020-11-13 21:32 | NUR ---
PT. REPORTS RELIEF FROM PAIN MEDS. PT. WAS GIVEN DISCHARGE INSTRUCTIONS AND SCRIPTS WITH UNDERSTANDING VERBALIZED ALONG WITH WILLINGNESS TO COMPLY. PT. WAS AMBULATORY TO THE DISCHARGE DESK, HER IS DRIVING.
[2020-11-13 21:33] VITALS: BP 147/94
== END 2020-11-13 21:35 | disposition home or self-care (01) ==
LOC: ED 20:30
DX: S29.012A Strain of muscle and tendon of back wall of thorax, initial encounter (principal); M54.5 Low back pain; R10.30 Lower abdominal pain, unspecified; R10.84 Generalized abdominal pain; X58.XXXA Exposure to other specified factors, initial encounter; Y93.89 Activity, other specified; Y92.89 Other specified places as the place of occurrence of the external cause; Y99.8 Other external cause status
CPT/HCPCS: 36415; 74176; 80053; 81003; 81025; 85025; 99284

== ENCOUNTER 2021-01-12 18:28 | Observation (INO) | payer BC ==
[~2021-01-12] VITALS: Ht 175.3 cm; Wt 90.0 kg
[2021-01-12 18:40] VITALS: BP 128/76
--- NOTE | 2021-01-12 18:47 | NUR ---
IMANI FOR SI. PT PLANNED ON JUMPING OFF A BRIDGE OR WALKING INTO TRAFFIC. WAS FOUND BY BRIDGE IN [facility]. HX DEPRESSION AND SI. ALL BELONGINGS TAKEN, LABLED, AND PLACED IN LOCKER. SAFETY PRECAUTIONS IN PLACE. SITTER AT BEDSIDE. VSS. BOWLING. LEGAL 2000
--- NOTE | 2021-01-12 18:55 | NUR ---
REPORT TO ELENA PÉREZ
[2021-01-12] MEDS ORDERED: LORazepam 1MG TABLET PO ONE (19:00)
[2021-01-12 19:02] LABS: BASOPHILS % (AUTO) 1 % (0-1); EOSINOPHILS % (AUTO) 4 % (1-7); LYMPHOCYTES % (AUTO) 38 % (22-44); MEAN CORPUSCULAR HEMOGLOBIN 33.7 pg (27.0-34.8); MEAN CORPUSCULAR HGB CONC 34.3 g/dL (32.4-35.8); MEAN PLATELET VOLUME 8.3 fL (7.4-10.4); MONOCYTES % (AUTO) 8 % (2-9); NEUTROPHILS % (AUTO) 50 % (42-75); PLATELET COUNT 308 x10^3/uL (130-400); RED BLOOD COUNT 4.33 x10^6/uL (3.82-5.3); RED CELL DISTRIBUTION WIDTH 13.6 % (9.6-15.2)
[2021-01-12 19:06] LABS: AMPHETAMINE SCREEN, URINE Negative (Negative); BARBITURATE SCREEN, URINE Negative (Negative); BENZODIAZEPINE SCREEN, URINE Negative (Negative); CANNABINOID SCREEN, URINE Negative (Negative); COCAINE SCREEN, URINE Negative (Negative); METHADONE SCREEN, URINE Negative (Negative); OPIATE SCREEN, URINE Negative (Negative)
--- NOTE | 2021-01-12 19:14 | NUR ---
PT SITTING UP IN BED, NAD AT THIS TIME, GARAGE DOORS DOWN FOR PT SAFETY, SITTER IN LINE OF SIGHT, PT A/OX4
[2021-01-12 19:15] LABS: ALANINE AMINOTRANSFERASE 37 U/L (12-78); CALCIUM 8.8 mg/dL (8.5-10.1); CREATININE 0.62 mg/dL (0.55-1.02)
[2021-01-12 19:19] LABS: ALKALINE PHOSPHATASE 55 U/L (45-117); BILIRUBIN,TOTAL 0.3 mg/dL (0.2-1.0); TOTAL PROTEIN 7.5 g/dL (6.4-8.2)
[2021-01-12 19:21] LABS: ANION GAP 12 mmol/L (5-15); CHLORIDE 109 mmol/L (98-107)
[2021-01-12 19:22] LABS: SALICYLATE LEVEL < 1.7 mg/dL (2.8-20.0)
[2021-01-12] MEDS ORDERED: LORazepam 1MG TABLET ONE (19:26)
--- NOTE | 2021-01-12 20:15 | NUR ---
PT LAYING IN BED, A/OX4, ALL NEEDS IN REACH, CALL LIGHT IN REACH, NAD AT THIS TIME, SITTER IN LINE OF SIGHT, GARAGE DOORS DOWN
--- NOTE | 2021-01-12 21:07 | NUR ---
PT SITTING UP IN BED, A/OX3, GARAGE DOORS DOWN, SITTER IN LINE OF SIGHT, NAD AT THIS TIME
--- NOTE | 2021-01-12 22:00 | NUR ---
PT ASLEEP IN BED, GARAGE DOORS DOWN, SITTER IN LINE OF SIGHT, NAD AT THIS TIME
--- NOTE | 2021-01-12 23:03 | NUR ---
PT ASLEEP IN BED, GARAGE DOORS DOWN, SITTER IN LINE OF SIGHT, NAD AT THIS TIME
--- NOTE | 2021-01-13 00:10 | NUR ---
PT WAS ASLEEP WHEN THIS RN WENT INTO ROOM, PT BLEW A 0.94 ON THE BREATHALYZER, PT A/OX3, ALL NEEDS IN REACH, CALL LIGHT IN REACH, NAD AT THIS TIME, GARAGE DOORS DOWN WITH SITTER IN LINE OF SIGHT
--- NOTE | 2021-01-13 01:23 | NUR ---
PT ASLEEP IN BED, ALL NEEDS IN REACH, CALL LIGHT IN REACH, NAD AT THIS TIME, GARAGE DOORS DOWN WITH SITTER IN LINE OF SIGHT
--- NOTE | 2021-01-13 02:08 | NUR ---
Spoke with Jodi from [facility]; she advises they cannot accept patient at this time due to inability to verify insurance.
--- NOTE | 2021-01-13 02:20 | NUR ---
[facility]ED PACKET TO [facility]
--- NOTE | 2021-01-13 02:43 | NUR ---
[facility]) ACCEPTING
--- NOTE | 2021-01-13 03:06 | NUR ---
RECIEVED REPORT FROM BETO PARKER. PATIENT RESTING ON GURNEY, SITTER AT BEDSIDE, BELONGINGS SECURED IN LOCKER, [facility] AT THIS TIME.
--- NOTE | 2021-01-13 04:03 | NUR ---
PATIENT RESTING ON GURNEY, SITTER AT BEDSIDE, BELONGINGS SECURED IN LOCKER, GARAGE DOORS LOCKED, NAD AT THIS TIME.
--- NOTE | 2021-01-13 05:08 | NUR ---
PATIENT RESTING ON GURNEY, SITTER AT BEDSIDE, BELONGINGS SECURED IN LOCKER, GARAGE DOORS LOCKED, NAD AT THIS TIME.
--- NOTE | 2021-01-13 05:57 | NUR ---
PATIENT ON PHONE IN [place], SITTER WITHIN LINE OF SIGHT, BELONGINGS SECURED IN LOCKER, GARAGE DOORS LOCKED, NAD AT THIS TIME.
--- NOTE | 2021-01-13 06:57 | NUR ---
REPORT RECIEVED FROM BETO MCDOWELL
--- NOTE | 2021-01-13 07:00 | NUR ---
PT RESTING QUITELY IN BED. SITTER AT BEDSIDE. NADN AT THIS TIME. GARAGE DOORS DOWN.
--- NOTE | 2021-01-13 07:15 | NUR ---
PT LEFT WITH [facility] WITH BELONINGS. Patient ambulatory with steady gait. NAD, all questions answered appropriately, denies additional needs at this time. No personal belongings left in room after discharge.
== END 2021-01-13 07:20 | disposition short-term general hospital (02) ==
LOC: ED 18:35 → INTOOBSV 18:42 → EDIP 18:42 → ED 18:50
PROVIDERS: ADMIT Emergency Medicine; ATTEND Emergency Medicine
DX: R45.851 Suicidal ideations (principal); F17.200 Nicotine dependence, unspecified, uncomplicated; F12.90 Cannabis use, unspecified, uncomplicated; F43.10 Post-traumatic stress disorder, unspecified; F31.9 Bipolar disorder, unspecified; Z90.710 Acquired absence of both cervix and uterus; Z79.899 Other long term (current) drug therapy
CPT/HCPCS: 36415; 80053; 80299; 80307; 80320; 80329; 84703; 85025; 99284; G0378; Q0177; G0480